=== PATIENT | female | born 1995 | race Caucasian/White ===

== ENCOUNTER → 2018-02-04 | Outpatient (CLI) | payer MEDICAID | END | disposition home or self-care (01) | LOC: U/S 17:08 | DX: O36.70X0 Maternal care for viable fetus in abdominal pregnancy, unspecified trimester, not applicable or unspecified (principal); Z3A.00 Weeks of gestation of pregnancy not specified | CPT/HCPCS: 76801 ==

== ENCOUNTER 2018-08-04 16:49 | Inpatient (IN) | payer MEDICAID ==
[2018-08-04 17:45] LABS: ADD UMIC YES; UR ASCORBIC ACID NEGATIVE (NEGATIVE); UR BILIRUBIN (Dip) NEGATIVE (NEGATIVE); UR BLOOD (Dip) NEGATIVE (NEGATIVE); UR CLARITY SLIGHTLY CLOUDY (CLEAR); UR COLOR YELLOW (YELLOW); UR GLUCOSE (Dip) NEGATIVE (NEGATIVE); UR KETONES (Dip) NEGATIVE (NEGATIVE); UR LEUKOCYTE ESTERASE (Dip) 3+ Leu/ul (NEGATIVE); UR NITRITE (Dip) NEGATIVE (NEGATIVE); UR RBC 1 /HPF (0-5); UR SQUAMOUS EPITHELIAL CELL FEW /HPF (FEW); UR TOTAL PROTEIN (Dip) NEGATIVE (NEGATIVE); UR UROBILINOGEN (Dip) NEGATIVE (NEGATIVE); UR WBC 9 /HPF (0-5)
[2018-08-04 18:13] LABS: ADD MAN DIFF? NO
[2018-08-04 18:16] LABS: WHITE BLOOD COUNT 9.9 10^3/ul (4.8-10.8)
[2018-08-04 18:16] LABS: BASOPHILS % 0.4 % (0.0-2.0); EOSINOPHILS # 0.1 10^3/ul (0.0-0.5); EOSINOPHILS % 0.9 % (0.0-7.0); HEMATOCRIT 36.8 % (37.0-47.0); HEMOGLOBIN 12.1 g/dl (12.0-16.0); LYMPHOCYTES # 2.2 10^3/ul (0.8-2.9); LYMPHOCYTES % 21.7 % (15.0-51.0); MEAN CORPUSCULAR HEMOGLOBIN 28.9 pg (29.0-33.0); MEAN CORPUSCULAR HGB CONC 32.9 g/dl (32.0-37.0); MEAN CORPUSCULAR VOLUME 87.8 fl (82.0-101.0); MEAN PLATELET VOLUME 11.1 fl (7.4-10.4); MONOCYTE # 0.8 10^3/ul (0.3-0.9); MONOCYTES % 7.9 % (0.0-11.0); NEUTROPHIL # 6.8 10^3/ul (1.6-7.5); NEUTROPHILS % 68.5 % (39.0-77.0); PLATELET COUNT 211 10^3/UL (140-415); RED BLOOD COUNT 4.19 10^6/ul (4.20-5.40); RED CELL DISTRIBUTION WIDTH 14.4 % (11.5-14.5)
[2018-08-04] MEDS ORDERED: LACTATED RINGER'S 1,000 ML IV (18:23)
[2018-08-04] MEDS ORDERED: CARBOPROST 250 MCG INJ IM (18:30)
[2018-08-04] MEDS ORDERED: BUTORPHANOL 2 MG INJ IV (18:30)
[2018-08-04] MEDS ORDERED: OXYTOCIN 30 UNITS/LR 500 ML IV ×2 (18:30)
[2018-08-04] MEDS ORDERED: IBUPROFEN 600 MG TAB PO (18:30)
[2018-08-04] MEDS ORDERED: MISOPROSTOL 200 MCG TAB PR (18:30)
[2018-08-04] MEDS ORDERED: METHYLERGONOVINE 0.2 MG INJ IM (18:30)
[2018-08-04 18:34] LABS: URIC ACID 6.2 mg/dl (3.1-7.9)
[2018-08-04 18:34] LABS: ALANINE AMINOTRANSFERASE 15 IU/L (13-69); ALBUMIN 3.5 g/dl (3.3-4.9); ALBUMIN/GLOBULIN RATIO 1.09; ALKALINE PHOSPHATASE 176 IU/L (42-121); ANION GAP 8 (5-13); ASPARTATE AMINO TRANSFERASE 20 IU/L (15-46); BILIRUBIN,INDIRECT 0.1 mg/dl (0-1.1); BILIRUBIN,TOTAL 0.1 mg/dl (0.2-1.3); BLOOD UREA NITROGEN 8 mg/dl (7-20); CALCIUM 9.1 mg/dl (8.4-10.2); CARBON DIOXIDE 23 mmol/L (21-31); CHLORIDE 106 mmol/L (97-110); CREATININE 0.47 mg/dl (0.44-1.00); Estimated GFR > 60 mL/min (>60); GLUCOSE 74 mg/dl (70-220); SODIUM 137 mmol/L (135-144); TOTAL PROTEIN 6.7 g/dl (6.1-8.1)
[2018-08-04] MEDS: LACTATED RINGER'S 1,000 ML IV ×2 (19:12→21:43)
[2018-08-04 20:43] LABS: INR 0.88; PT RATIO 0.9
[2018-08-04 20:44] LABS: PARTIAL THROMBOPLASTIN TIME 29.5 Sec (23.0-35.0)
[2018-08-04 21:20] LABS: HEPATITIS B SURFACE ANTIGEN NEGATIVE (NEGATIVE)
[2018-08-04] MEDS: TERBUTALINE 1 MG/ML INJ SC (21:23)
[2018-08-05] MEDS: LACTATED RINGER'S 1,000 ML IV ×2 (05:49→14:00)
[2018-08-05] MEDS: OXYTOCIN 30 UNITS/LR 500 ML IV ×2 (09:18→16:49)
[2018-08-05 15:35] LABS: RAPID PLASMA REAGIN NONREACTIVE (NR)
[2018-08-05] MEDS: LIDOCAINE 1% (MPF) 30 ML INJ INJ (16:19)
[2018-08-05] MEDS: MINERAL OIL LIGHT 10 ML VIAL TOP (16:20)
[2018-08-05] MEDS: KETOROLAC 30 MG INJ IM (16:33)
[2018-08-05] MEDS: LACTATED RINGER'S 1,000 ML IV* ×2 (18:25→20:37)
[2018-08-05] MEDS ORDERED: METHYLERGONOVINE 0.2 MG INJ IM (18:30)
[2018-08-05] MEDS ORDERED: HYDROCODONE/APAP (5/325) TAB PO (18:30)
[2018-08-05] MEDS ORDERED: MISOPROSTOL 200 MCG TAB PR (18:30)
[2018-08-05] MEDS ORDERED: OXYTOCIN 30 UNITS/LR 500 ML IV (18:30)
[2018-08-05] MEDS ORDERED: DIBUCAINE 1% 30 GM OINT TOP (18:30)
[2018-08-05] MEDS ORDERED: CARBOPROST 250 MCG INJ IM (18:30)
[2018-08-05] MEDS ORDERED: ZOLPIDEM 5 MG TAB PO (18:30)
[2018-08-05] MEDS: WITCH HAZEL/GLYCERIN PAD PR (18:50)
[2018-08-05] MEDS: BENZOCAINE 20% 56 ML SPRAY TOP (18:50)
[2018-08-05] MEDS: LANOLIN HPA 1 PKT TOP (18:51)
[2018-08-05] MEDS: MAGNESIUM HYDROXIDE 30ML CUP PO (20:33)
[2018-08-05] MEDS: SENNA/DOCUSATE NA (8.6MG/50MG) TAB PO (20:33)
[2018-08-05] MEDS: HYDROCODONE/APAP (5/325) TAB PO (20:33)
[2018-08-05] MEDS: IBUPROFEN 600 MG TAB PO (23:29)
[2018-08-06] MEDS: IBUPROFEN 600 MG TAB PO ×3 (05:29→18:16)
[2018-08-06 08:29] LABS: ADD MAN DIFF? NO
[2018-08-06 08:35] LABS: WHITE BLOOD COUNT 8.9 10^3/ul (4.8-10.8)
[2018-08-06 08:35] LABS: BASOPHILS % 0.3 % (0.0-2.0); EOSINOPHILS % 0.2 % (0.0-7.0); HEMATOCRIT 31.6 % (37.0-47.0); HEMOGLOBIN 10.4 g/dl (12.0-16.0); LYMPHOCYTES # 1.3 10^3/ul (0.8-2.9); LYMPHOCYTES % 14.4 % (15.0-51.0); MEAN CORPUSCULAR HEMOGLOBIN 29.1 pg (29.0-33.0); MEAN CORPUSCULAR HGB CONC 32.9 g/dl (32.0-37.0); MEAN CORPUSCULAR VOLUME 88.3 fl (82.0-101.0); MEAN PLATELET VOLUME 11.1 fl (7.4-10.4); MONOCYTE # 0.6 10^3/ul (0.3-0.9); NEUTROPHIL # 6.9 10^3/ul (1.6-7.5); NEUTROPHILS % 77.4 % (39.0-77.0); PLATELET COUNT 172 10^3/UL (140-415); RED BLOOD COUNT 3.58 10^6/ul (4.20-5.40); RED CELL DISTRIBUTION WIDTH 14.4 % (11.5-14.5)
[2018-08-06] MEDS: MAGNESIUM HYDROXIDE 30ML CUP PO ×2 (09:00→21:12)
[2018-08-06] MEDS: SENNA/DOCUSATE NA (8.6MG/50MG) TAB PO ×2 (10:06→21:12)
[2018-08-06] MEDS: HYDROCODONE/APAP (5/325) TAB PO ×2 (10:06→11:51)
[2018-08-07] MEDS: IBUPROFEN 600 MG TAB PO ×3 (00:13→11:20)
[2018-08-07] MEDS: MAGNESIUM HYDROXIDE 30ML CUP PO (09:00)
[2018-08-07] MEDS: DIPHTH/TET/ACEL PERTUSS (ADULT) 0.5 ML VIAL IM* (09:01)
[2018-08-07] MEDS: SENNA/DOCUSATE NA (8.6MG/50MG) TAB PO (09:01)
[2018-08-07] MEDS: MEASLES,MUMPS,RUBELLA VACCINE INJ SC* (09:02)
[2018-08-07] MEDS: VARICELLA VACCINE LIVE/PF 1,350 UNIT/0.5 ML ML SC* (09:02)
== END 2018-08-07 13:30 | disposition home or self-care (01) | DRG 807 ==
LOC: OBT 16:49 → L-D 16:50 → PP1 08-05 18:18 → OBT 18:20 → L-D 18:20
PROC: 10E0XZZ Delivery of Products of Conception, External Approach (ICD-10-PCS; principal; 2018-08-05)
PROC: 0KQM0ZZ Repair Perineum Muscle, Open Approach (ICD-10-PCS; 2018-08-05)
DX: O76 Abnormality in fetal heart rate and rhythm complicating labor and delivery (principal); Z37.0 Single live birth; O77.0 Labor and delivery complicated by meconium in amniotic fluid; O70.1 Second degree perineal laceration during delivery; Z3A.37 37 weeks gestation of pregnancy
CPT/HCPCS: 76815; 76818; 80053; 81001; 84560; 85025; 85610; 85730; 86592; 86900; 86901; 87340; 90716